=== PATIENT | female | born 1940 | race Caucasian/White ===

== ENCOUNTER 2020-05-02 01:25 | Outpatient (CLI) | payer MEDICARE, SELFPAY ==
[2020-05-02 18:16] LABS: SARS-CoV-2 RNA PCR Negative
== END 2020-05-02 01:26 | disposition home or self-care (01) ==
LOC: ANHCOVIDDT 01:27
PROVIDERS: PCP Internal Medicine; Visit Provider Internal Medicine Gastroenterology
DX: Z01.812 Encounter for preprocedural laboratory examination (principal); Z20.828 Contact with and (suspected) exposure to other viral communicable diseases
CPT/HCPCS: 87635; C9803; U0003

== ENCOUNTER 2020-05-04 01:16 | Day surgery (SDC) | payer MEDICARE, SELFPAY ==
[2020-04-27 13:44] VITALS: BMI 18.1
[2020-05-04 06:24] VITALS: BP 159/77; PULSE 99; RESP 18; TEMP 36.7; O2SAT 98
[2020-05-04] MEDS: LACTATED RINGERS 1,000 ML 150 ML IV CONT (06:38)
--- NOTE | 2020-05-04 07:03 | WPDANESEPPF ---
Anes - Initial Pre Proc Eval Procedure: Operation Date: 05/04/20 07:30 Proposed Procedures p Screening Colonoscopy - Preston Benavidez MD Date/Time: 05/04/20 07:03 Surgeon: Preston Benavidez MD Pre Op Diagnosis: hx of polyps Patient Data Age: 79 Gender: F Height: 5 ft 2 in Weight: 43.8 kg Last Vital Signs Temp 36.7 C 05/04/20 06:24 Pulse 99 05/04/20 06:24 Resp 18 05/04/20 06:24 BP 159/77 H 05/04/20 06:24 Pulse Ox 98 05/04/20 06:24 Allergies Allergy/AdvReac Type Severity Reaction Status Date / Time No Known Allergies Allergy Verified 05/04/20 06:23 Home Medications Medication Instructions Recorded Confirmed Type alendronate 70 mg PO WEEKLY 04/27/20 05/04/20 History calcium carbonate [Calcium 500] 500 mg PO DAILY 04/27/20 05/04/20 History ergocalciferol (vitamin D2) 1,250 mcg PO DAILY 04/27/20 05/04/20 History [Vitamin D2] Patient hx anesthesia problems: other (low bp) Family hx anesthesia problems: none PMFSH Past Medical History Medical History Osteoporosis Social History Social History Living arrangements: alone Spiritual care concerns: No Anes - Eval Final PreProcedure Day of Procedure 05/04/20 07:03 Patient weight: normal Heart: regular rate and rhythm Lungs: clear to auscultation Airway: Mallampati scale class II Neurological: alert and oriented Last oral intake: >/= 8 hours ASA classification: II Emergent: no Anesthetic plan: proceed Anesthesia type and monitoring: general GIVS and standard monitoring Informed Consent: The patient's anesthetic plan and its attendant risks and benefits were discussed with the patient/family/POA. Questions were solicited and answers provided to the satisfaction of the patient/family/POA.
--- NOTE | 2020-05-04 07:17 | PM.HPGS ---
History of Present Illness History of Present Illness Consent: Risks, benefits, and alternatives have been discussed and questions answered. Patient agrees to proceed with procedure. Chief complaint: hx of polyps Narrative: Gila Cartwright is a 79 year old female With a history of polyps, 1 incompletely removed 2 years ago Review of Systems Review of Systems: All systems reviewed & are unremarkable except as noted in HPI and below PMFSH Past Medical History Medical History Osteoporosis Social History Social History Living arrangements: alone Spiritual care concerns: No Meds Home Medications and Allergies Home Medications Medication Instructions Recorded Confirmed Type alendronate 70 mg PO WEEKLY 04/27/20 05/04/20 History calcium carbonate [Calcium 500] 500 mg PO DAILY 04/27/20 05/04/20 History ergocalciferol (vitamin D2) 1,250 mcg PO DAILY 04/27/20 05/04/20 History [Vitamin D2] Allergies Allergy/AdvReac Type Severity Reaction Status Date / Time No Known Allergies Allergy Verified 05/04/20 06:23 Vital Signs Vital Signs - 24 hr 05/04/20 06:24 Temperature 36.7 C Pulse Rate 99 Respiratory Rate 18 Blood Pressure 159/77 H Pulse Oximetry 98 Exam Resp: Auscultation: clear to auscultation bilaterally Cardio: Rate: regular rate Rhythm: regular rhythm GI: GI Palp: Yes Soft to palpation and No Tenderness to palpation present (GI) Assessment and Plan Assessment and plan (1) Personal history of colonic polyps: Code(s): Z86.010 - Personal history of colonic polyps Status: Acute Assessment and Plan: Colonoscopy with possible biopsy or polypectomy or cautery or injection of substances.
[2020-05-04] MEDS: SIMETHICONE ORAL SUSPENSION 20 MG/0.3 ML 30 ML BOTTLE 0.6 ML IRRIGATION (07:40)
[2020-05-04 08:19] VITALS: BP 121/65; PULSE 92; RESP 23; O2SAT 100
[2020-05-04 08:29] VITALS: BP 117/79; PULSE 92; RESP 19; O2SAT 100
[2020-05-04 08:38] VITALS: BP 127/92; PULSE 92; RESP 22; O2SAT 100
== END 2020-05-04 09:05 | disposition home or self-care (01) ==
PROVIDERS: PCP Internal Medicine; Visit Provider Internal Medicine Gastroenterology
PROC: 0DJD8ZZ Inspection of Lower Intestinal Tract, Via Natural or Artificial Opening Endoscopic (ICD-10-PCS; CPT 45378; principal; 2020-05-04 07:30)
DX: Z12.11 Encounter for screening for malignant neoplasm of colon (principal); K63.5 Polyp of colon; M81.0 Age-related osteoporosis without current pathological fracture
CPT/HCPCS: 45381; 45385; 45388; 88305; J2001; J2704; J7120